=== PATIENT | male | born 1970 | race Two or more races ===

== ENCOUNTER 2019-06-01 22:00 | Inpatient (IN) | payer MEDICARE ==
[~2019-06-01] VITALS: Ht 175.3 cm; Wt 74.9 kg
[2019-06-01] MEDS ORDERED: PLEASE ENTER ALLERGIES MC SCH (22:30)
[2019-06-01] MEDS ORDERED: VANCOMYCIN PER PHARMACY IV ONE (22:30)
[2019-06-01] MEDS ORDERED: SODIUM CHLORIDE 0.9% 1,000ML IVBOLUS ONE (22:30)
[2019-06-01] MEDS ORDERED: PIPERACILLIN/TAZO/PMX 3.375GM 50 ML IVPB ONE (22:30)
[2019-06-01] MEDS ORDERED: PLEASE ENTER HEIGHT AND WEIGHT MC SCH (22:30)
[2019-06-01 22:33] LABS: MICROSCOPIC NOT IND
[2019-06-01 22:35] LABS: CULTURE INDICATED? NO
[2019-06-01] MEDS ORDERED: PIPERACILLIN/TAZO/PMX 3.375GM 50 ML ONE (22:40)
[2019-06-01 22:42] LABS: BASOPHILS # (AUTO) 0.03 x10^3/uL (0-0.1); BASOPHILS % (AUTO) 0 % (0-1); EOSINOPHILS # (AUTO) 0.17 x10^3/uL (0-0.4); EOSINOPHILS % (AUTO) 2 % (1-7); LYMPHOCYTES # (AUTO) 0.62 x10^3/uL (1-3.4); LYMPHOCYTES % (AUTO) 7 % (22-44); MD NO; MEAN CORPUSCULAR HEMOGLOBIN 31.2 pg (27.5-34.5); MEAN CORPUSCULAR HGB CONC 33.2 g/dL (33.2-36.2); MEAN CORPUSCULAR VOLUME 93.8 fL (81-97); MONOCYTES # (AUTO) 0.57 x10^3/uL (0.2-0.8); MONOCYTES % (AUTO) 6 % (2-9); NEUTROPHILS % (AUTO) 85 % (42-75); PLATELET COUNT 263 x10^3/uL (130-400); RED BLOOD COUNT 3.52 x10^6/uL (4.38-5.82); RED CELL DISTRIBUTION WIDTH 15.3 % (9.4-14.8)
--- NOTE | 2019-06-01 22:47 | NUR ---
PT TO CT SCAN. EDMD NOTIFIED PT HAS RECIEVED 3L NS PRIOR TO ARRIVAL. ORDER TO HOLD NS BOLUS AT THIS TIME.
[2019-06-01 22:55] LABS: ALANINE AMINOTRANSFERASE 37 U/L (12-78); ALBUMIN 2.2 g/dL (3.4-5.0); ANION GAP 9 mmol/L (5-15); CALCIUM 6.8 mg/dL (8.5-10.1); CHLORIDE 115 mmol/L (98-107); CREATININE 2.49 mg/dL (0.7-1.3)
[2019-06-01 23:00] LABS: ALKALINE PHOSPHATASE 55 U/L (45-117); BILIRUBIN,TOTAL 0.9 mg/dL (0.2-1.0); TOTAL PROTEIN 6.2 g/dL (6.4-8.2)
[2019-06-01] MEDS ORDERED: PHARMACOKINETIC CONSULTATION MC ONE (23:00)
[2019-06-01 23:03] LABS: TROPONIN I 0.575 ng/mL (0.000-0.045)
[2019-06-01] MEDS: VANCOMYCIN 1,400 MG in SODIUM CHLORIDE 0.9% 250 ML IV ONE ×2 (23:05→23:42)
--- NOTE | 2019-06-01 23:10 | NUR ---
PT RETURNED FROM CT SCAN.
--- NOTE | 2019-06-01 23:22 | NUR ---
AT BEDSIDE TO REASSESS PATIENT AND UPDATE PATIENT ON POC. PT WATCHING TV IN BED.
--- NOTE | 2019-06-01 23:31 | NUR ---
PT ON BSC. PT TACHYPNEIC. PT C/O RIGHT SIDED RIB PAIN WHEN STANDING UP. WILL CONTINUE TO MONITOR
[2019-06-01] MEDS ORDERED: ONDANSETRON 2MG/ML, 2ML ONE (23:40)
[2019-06-01] MEDS ORDERED: AMIT25TA PO (23:55)
[2019-06-01] MEDS ORDERED: TEMA30CA6 PO (23:55)
[2019-06-01] MEDS ORDERED: CITA10TA8 PO (23:55)
[2019-06-01] MEDS ORDERED: ADAL40KI SQ (23:55)
[2019-06-01] MEDS ORDERED: APIX5TAB PO (23:55)
[2019-06-01] MEDS ORDERED: CYAN100074 PO (23:55)
[2019-06-01] MEDS ORDERED: PANT40TA3 PO (23:55)
[2019-06-02 00:07] VITALS: BP 116/76
[2019-06-02] MEDS ORDERED: ONDANSETRON 2MG/ML, 2ML IVPush PRN (01:00)
[2019-06-02] MEDS ORDERED: CYANOCOBALAMIN 1,000 MCG TABLET PO SCH (01:00)
[2019-06-02] MEDS ORDERED: morphine SULFATE 10 MG/ML, 1ML IVPush PRN (01:00)
[2019-06-02] MEDS ORDERED: DOCUSATE 100 MG CAPSULE PO PRN (01:00)
[2019-06-02] MEDS ORDERED: POLYETHYLENE GLYCOL 17 GM PACKET PO PRN (01:00)
[2019-06-02] MEDS ORDERED: ACETAMINOPHEN 325 MG TABLET PO PRN (01:00)
[2019-06-02] MEDS ORDERED: hydrALAzine 20 MG/ML, 1ML IVPush PRN (01:00)
[2019-06-02] MEDS ORDERED: PROMETHAZINE 25 MG/ML, 1ML IM PRN (01:00)
[2019-06-02] MEDS ORDERED: LABETALOL 5MG/ML, 20ML IVPush PRN (01:00)
[2019-06-02] MEDS ORDERED: AMITRIPTYLINE 25 MG TABLET PO SCH (01:00)
[2019-06-02] MEDS: OXYcodone IR 5MG TABLET PO PRN (01:11)
[2019-06-02] MEDS: SODIUM CHLORIDE 0.9% 1,000 ML IV SCH ×2 (01:11→08:32)
[2019-06-02] MEDS: LACTOBACILLUS CHEW TABLET PO SCH ×4 (01:11→21:58)
[2019-06-02 01:13] LABS: HEMOGLOBIN A1C 5.4 % (4.2-6.3)
[2019-06-02 01:15] LABS: C-REACTIVE PROTEIN, QUANT 6.6 mg/dL (0.02-0.49); FREE T4 (FREE THYROXINE) 0.97 ng/dL (0.76-1.46)
[2019-06-02] MEDS ORDERED: MAGNESIUM SULFATE PMX 2GM/50ML 50 ML IV ONE (02:00)
[2019-06-02 03:13] LABS: BASOPHILS # (AUTO) 0.04 x10^3/uL (0-0.1); BASOPHILS % (AUTO) 1 % (0-1); EOSINOPHILS # (AUTO) 0.13 x10^3/uL (0-0.4); EOSINOPHILS % (AUTO) 2 % (1-7); LYMPHOCYTES # (AUTO) 0.45 x10^3/uL (1-3.4); LYMPHOCYTES % (AUTO) 6 % (22-44); MD NO; MEAN CORPUSCULAR VOLUME 93.8 fL (81-97); MONOCYTES # (AUTO) 0.45 x10^3/uL (0.2-0.8); MONOCYTES % (AUTO) 5 % (2-9); NEUTROPHILS # (AUTO) 7.17 x10^3/uL (1.8-6.8); NEUTROPHILS % (AUTO) 87 % (42-75); PLATELET COUNT 252 x10^3/uL (130-400); RED BLOOD COUNT 3.33 x10^6/uL (4.38-5.82); RED CELL DISTRIBUTION WIDTH 15.4 % (9.4-14.8)
[2019-06-02 03:23] LABS: ALBUMIN 2.1 g/dL (3.4-5.0); ANION GAP 9 mmol/L (5-15); CALCIUM 6.9 mg/dL (8.5-10.1); CHLORIDE 114 mmol/L (98-107); CHOLESTEROL, TOTAL 68 mg/dL (140-239)
[2019-06-02 03:29] LABS: ALANINE AMINOTRANSFERASE 33 U/L (12-78); ALKALINE PHOSPHATASE 54 U/L (45-117); BILIRUBIN,TOTAL 1.1 mg/dL (0.2-1.0); CHOL/HDL RATIO 1.9; HDL CHOL % 53 % (26-37); HDL CHOLESTEROL (DIRECT) 36 mg/dL (40-60); LDL CHOLESTEROL,CALCULATED 18 mg/dL (54-169); LDL/HDL RATIO 0.5 (0.5-3.0); TRIGLYCERIDES 69 mg/dL (50-200); TROPONIN I 0.406 ng/mL (0.000-0.045); VLDL CHOLESTEROL 14 mg/dL (0-25)
[2019-06-02] MEDS: PIPERACILLIN/TAZO/PMX 2.25GM 50 ML IV SCH ×3 (06:33→23:20)
[2019-06-02 06:45] VITALS: BP 103/67
[2019-06-02 07:17] LABS: TROPONIN I 0.334 ng/mL (0.000-0.045)
[2019-06-02] MEDS ORDERED: CITALOPRAM 10 MG TABLET PO SCH (09:00)
[2019-06-02] MEDS ORDERED: TEMAZEPAM 30 MG CAPSULE PO SCH (09:00)
[2019-06-02 09:48] LABS: TROPONIN I 0.261 ng/mL (0.000-0.045)
[2019-06-02] MEDS: APIXABAN 5 MG TABLET PO SCH ×2 (10:19→21:58)
[2019-06-02] MEDS: PANTOPRAZOLE 40 MG IV IVPush SCH (10:19)
[2019-06-02] MEDS: ONDANSETRON ODT 4 MG PO PRN ×3 (10:31→21:58)
[2019-06-02] MEDS ORDERED: DAPTOMYCIN IV SCH (12:00)
[2019-06-02] MEDS ORDERED: SODIUM CHLORIDE 0.9% IV SCH (12:00)
[2019-06-02 12:06] VITALS: BP 104/69
[2019-06-02] MEDS: LINEZOLID PMX 600MG/300ML 300 ML IV SCH (13:16)
[2019-06-02 18:37] VITALS: BP 107/74
[2019-06-02] MEDS ORDERED: TEMAZEPAM 15 MG CAPSULE ONE (21:56)
[2019-06-02] MEDS: TEMAZEPAM 30 MG CAPSULE PO SCH (21:58)
[2019-06-03] MEDS: LINEZOLID PMX 600MG/300ML 300 ML IV SCH ×2 (00:48→12:27)
[2019-06-03 01:54] VITALS: BP 94/58
[2019-06-03 06:30] VITALS: BP 108/72
[2019-06-03] MEDS: LACTOBACILLUS CHEW TABLET PO SCH ×3 (07:43→20:58)
[2019-06-03] MEDS: APIXABAN 5 MG TABLET PO SCH ×2 (07:43→20:58)
[2019-06-03] MEDS: PIPERACILLIN/TAZO/PMX 2.25GM 50 ML IV SCH ×3 (07:44→23:47)
[2019-06-03] MEDS: PANTOPRAZOLE 40 MG IV IVPush SCH (07:44)
[2019-06-03 09:33] LABS: MEAN CORPUSCULAR HEMOGLOBIN 29.8 pg (27.5-34.5); MEAN CORPUSCULAR HGB CONC 31.7 g/dL (33.2-36.2); MEAN CORPUSCULAR VOLUME 94.1 fL (81-97); MEAN PLATELET VOLUME 6.8 fL (7.4-10.4); PLATELET COUNT 240 x10^3/uL (130-400); RED BLOOD COUNT 3.63 x10^6/uL (4.38-5.82); RED CELL DISTRIBUTION WIDTH 15.9 % (9.4-14.8)
[2019-06-03 09:42] LABS: ANION GAP 8 mmol/L (5-15); CHLORIDE 114 mmol/L (98-107)
[2019-06-03 09:45] LABS: CALCIUM 8.1 mg/dL (8.5-10.1); CREATININE 2.36 mg/dL (0.7-1.3)
[2019-06-03 10:01] LABS: BASOPHILS # (AUTO) 0.03 x10^3/uL (0-0.1); BASOPHILS % (AUTO) 1 % (0-1); EOSINOPHILS % (AUTO) 0 % (1-7); LYMPHOCYTES # (AUTO) 0.39 x10^3/uL (1-3.4); LYMPHOCYTES % (AUTO) 8 % (22-44); MD SCAN; MONOCYTES # (AUTO) 0.34 x10^3/uL (0.2-0.8); MONOCYTES % (AUTO) 7 % (2-9); NEUTROPHILS # (AUTO) 4.37 x10^3/uL (1.8-6.8); NEUTROPHILS % (AUTO) 85 % (42-75)
[2019-06-03 12:04] VITALS: BP 94/60
[2019-06-03] MEDS: OXYcodone IR 5MG TABLET PO PRN (13:33)
[2019-06-03 19:31] VITALS: BP 100/68
[2019-06-03 22:01] VITALS: BP 107/72
[2019-06-03] MEDS: TEMAZEPAM 30 MG CAPSULE PO SCH (22:45)
[2019-06-04] MEDS: LINEZOLID PMX 600MG/300ML 300 ML IV SCH (01:01)
[2019-06-04 01:05] VITALS: BP 103/70
[2019-06-04] MEDS ORDERED: PANTOPROZOLE 40MG TABLET PO SCH (06:00)
[2019-06-04 06:15] LABS: BASOPHILS # (AUTO) 0.01 x10^3/uL (0-0.1); BASOPHILS % (AUTO) 0 % (0-1); EOSINOPHILS # (AUTO) 0.01 x10^3/uL (0-0.4); EOSINOPHILS % (AUTO) 0 % (1-7); LYMPHOCYTES # (AUTO) 0.51 x10^3/uL (1-3.4); LYMPHOCYTES % (AUTO) 15 % (22-44); MD NO; MEAN CORPUSCULAR HEMOGLOBIN 29.9 pg (27.5-34.5); MEAN CORPUSCULAR HGB CONC 31.9 g/dL (33.2-36.2); MEAN CORPUSCULAR VOLUME 93.9 fL (81-97); MEAN PLATELET VOLUME 6.6 fL (7.4-10.4); MONOCYTES # (AUTO) 0.23 x10^3/uL (0.2-0.8); MONOCYTES % (AUTO) 7 % (2-9); NEUTROPHILS # (AUTO) 2.74 x10^3/uL (1.8-6.8); NEUTROPHILS % (AUTO) 78 % (42-75); PLATELET COUNT 263 x10^3/uL (130-400); RED BLOOD COUNT 3.52 x10^6/uL (4.38-5.82); RED CELL DISTRIBUTION WIDTH 15.5 % (9.4-14.8)
[2019-06-04 06:29] LABS: ANION GAP 7 mmol/L (5-15); CHLORIDE 112 mmol/L (98-107); CREATININE 2.37 mg/dL (0.7-1.3)
[2019-06-04 07:14] VITALS: BP 109/68
[2019-06-04] MEDS: LACTOBACILLUS CHEW TABLET PO SCH (09:24)
[2019-06-04] MEDS: APIXABAN 5 MG TABLET PO SCH (09:24)
[2019-06-04] MEDS: PIPERACILLIN/TAZO/PMX 2.25GM 50 ML IV SCH (09:24)
[2019-06-04] MEDS ORDERED: CEFD300C37 PO (11:54)
[2019-06-04] MEDS ORDERED: LINE600T15 PO (11:54)
== END 2019-06-04 12:40 | disposition home or self-care (01) | DRG 871 ==
LOC: ED 23:01 → EDIP 23:26 → 4EST 06-02 00:20
PROVIDERS: ADMIT Internal Medicine; ATTEND Internal Medicine
DX: A41.9 Sepsis, unspecified organism (principal); I21.4 Non-ST elevation (NSTEMI) myocardial infarction; J15.9 Unspecified bacterial pneumonia; R65.21 Severe sepsis with septic shock; J96.01 Acute respiratory failure with hypoxia; K50.911 Crohn's disease, unspecified, with rectal bleeding; D68.59 Other primary thrombophilia; E44.0 Moderate protein-calorie malnutrition; E87.2 Acidosis; J84.9 Interstitial pulmonary disease, unspecified; N18.3 Chronic kidney disease, stage 3 (moderate); K76.0 Fatty (change of) liver, not elsewhere classified; D64.9 Anemia, unspecified; F41.9 Anxiety disorder, unspecified; I95.0 Idiopathic hypotension; K21.9 Gastro-esophageal reflux disease without esophagitis; Z95.828 Presence of other vascular implants and grafts; Z79.01 Long term (current) use of anticoagulants; Z86.711 Personal history of pulmonary embolism; Z86.718 Personal history of other venous thrombosis and embolism; Z68.34 Body mass index [BMI] 34.0-34.9, adult
CPT/HCPCS: 36415; 71250; 74176; 80048; 80053; 80061; 81003; 83036; 83605; 83690; 83735; 83880; 84100; 84145; 84439; 84443; 84484; 85025; 85651; 86140; 87040; 93005; 93306; 96365; 96375; G0378; J2020; J2405; J2543; J3370; Q0162; C9113; J3475; J7030; J7050